=== PATIENT | male | born 1995 | race Caucasian/White ===

== ENCOUNTER 2022-07-29 19:18 | Observation (INO) | payer BC ==
--- NOTE | 2022-07-29 19:25 | ERPHSYRPT ---
- History of Present Illness Time Seen by Provider: 07/29/22 19:25 Source: patient Exam Limitations: no limitations Physician History: This a 27-year-old white male has had no prior abdominal surgery presents with fever that has as high as 102 F and associated nausea without vomiting and abdominal pain that has worsened. When asked where the pain is he points to the right lower quadrant. Patient also has had body aches and a headache. Timing/Duration: yesterday Cough Quality/Degree: no cough Possible Cause: no prior episodes Modifying Factors: Improves With: nothing Associated Symptoms: fever, chills, muscle aches Allergies/Adverse Reactions: No Known Drug Allergies Allergy (Unverified 07/29/22 19:39) Home Medications: No Reportable Medications [No Reported Medications] 07/29/22 [History] Travel Risk - International Travel Have you traveled outside of the country in past 3 weeks: No - Coronavirus Screening Are you exhibiting any of the following symptoms?: Yes Symptoms: Fever, Vomiting/Diarrhea, Headaches/Body Aches/Fatigue Close contact with a COVID-19 positive Pt in past 14-21 Days: No - Review of Systems Constitutional: Fever, Chills Eyes: No Symptoms Ears, Nose, & Throat: No Symptoms Respiratory: No Symptoms Cardiac: No Symptoms Abdominal/Gastrointestinal: Abdominal Pain, Nausea, Diarrhea, Appetite Changes, No Vomiting Genitourinary Symptoms: No Symptoms Musculoskeletal: Arthralgias, Myalgias Skin: No Symptoms Neurological: No Symptoms Psychological: No Symptoms Endocrine: No Symptoms Hematologic/Lymphatic: No Symptoms Immunological/Allergic: No Symptoms All Other Systems: Reviewed and Negative - Past Medical History Pertinent Past Medical History: No - Past Surgical History Past Surgical History: No - Nursing Vital Signs Nursing Vital Signs: Initial Vital Signs Temperature 102.1 F 07/29/22 19:41 Pulse Rate 128 H 07/29/22 19:41 Respiratory Rate 20 07/29/22 19:41 Blood Pressure 119/71 07/29/22 19:41 O2 Sat by Pulse Oximetry 100 07/29/22 19:41 Pain Scale Pain Intensity 8 - Physical Exam General Appearance: no apparent distress, alert, anxiety Eye Exam: PERRL/EOMI, eyes nml inspection Ears, Nose, Throat Exam: normal ENT inspection, moist mucous membranes Neck Exam: normal inspection, non-tender, supple, full range of motion Respiratory Exam: normal breath sounds, lungs clear, airway intact, No chest tenderness, No respiratory distress Cardiovascular Exam: tachycardia Gastrointestinal/Abdomen Exam: soft, normal bowel sounds, tenderness (Point of maximal tenderness is right lower quadrant with both rebound and guarding), guarding, rebound Rectal Exam: not done Back Exam: normal inspection, normal range of motion, No CVA tenderness, No ve rtebral tenderness Extremity Exam: normal inspection, normal range of motion, pelvis stable Neurologic Exam: alert, oriented x 3, cooperative, 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, normal mood/affect, nml cerebellar function, nml station & gait Skin Exam: normal color, warm, dry Lymphatic Exam: No adenopathy SpO2 Interpretation: normal O2 Delivery: Room Air - Course Nursing assessment & vital signs reviewed: Yes Ordered Tests: Active Orders 24 hr Category Date Time Status IV Insertion STAT Care 07/29/22 20:05 Active ABDOMEN AND PELVIS W/0 CONTRAS [CT] Stat Exams 07/29/22 20:06 Taken AMYLASE Stat Lab 07/29/22 20:30 Completed BLOOD CULTURE Stat Lab 07/29/22 20:30 Received CBC W DIFF Stat Lab 07/29/22 20:30 Completed CMP Stat Lab 07/29/22 20:30 Completed LIPASE Stat Lab 07/29/22 20:30 Completed Lactic Acid Stat Lab 07/29/22 20:29 Completed [place] Screen Stat Lab 07/29/22 20:30 Completed UA W/RFX CULTURE Stat Lab 07/29/22 20:30 Received Medication Summary Discontinued Medications Generic Name Dose Route Start Last Admin Trade Name Yanni PRN Reason Stop Dose Admin Acetaminophen 650 mg 07/29/22 20:51 07/29/22 20:54 Acetaminophen 325 Mg Tablet PO 07/29/22 20:52 Not Given STAT ONE Hydromorphone HCl 1 mg 07/29/22 20:05 07/29/22 20:36 Hydromorphone 1 Mg/1ml Inj 1 Mg/Ml Syringe IV 07/29/22 20:06 1 mg STAT ONE Administration Hydromorphone HCl Confirm 07/29/22 20:33 Hydromorphone 1 Mg/1ml Inj 1 Mg/Ml Syringe Administered 07/29/22 20:34 Dose 1 mg .ROUTE .STK-MED ONE Sodium Chloride 1,000 mls @ 999 mls/hr 07/29/22 20:05 07/29/22 20:35 Sodium Chloride 0.9% 1000 Ml IV 07/29/22 21:05 999 mls/hr .Q1H1M STA Administration Sodium Chloride Confirm 07/29/22 20:33 Sodium Chloride 0.9% 1000 Ml Administered 07/29/22 20:34 Dose 1,000 mls @ ud .ROUTE .STK-MED ONE Piperacillin Sod/Tazobactam 100 mls @ 200 mls/hr 07/29/22 20:58 07/29/22 21:02 Sod 3.375 gm/ Sodium Chloride IV 07/29/22 21:27 200 mls/hr STAT ONE Administration Sodium Chloride Confirm 07/29/22 21:02 Sodium Chloride 100ml Mini-Bag Plus Administered 07/29/22 21:03 Dose 100 mls @ ud IV .STK-MED ONE Ondansetron HCl 4 mg 07/29/22 20:05 07/29/22 20:36 Ondansetron Hcl 4 Mg/2 Ml Vial IV 07/29/22 20:06 4 mg STAT ONE Administration Ondansetron HCl Confirm 07/29/22 20:33 Ondansetron Hcl 4 Mg/2 Ml Vial Administered 07/29/22 20:34 Dose 4 mg .ROUTE .STK-MED ONE Piperacillin Sod/Tazobactam Sod Confirm 07/29/22 21:01 Piperacillin/Tazobactam Sodium 3.375 Gm Vial Administered 07/29/22 21:02 Dose 3.375 gm IV .STK-MED ONE Lab/Rad Data: Laboratory Result Diagrams 07/29/22 20:30 07/29/22 20:30 Laboratory Results 07/29/22 07/29/22 07/29/22 Range/Units 20:30 20:30 20:30 WBC (4.0-10.5) x10^3/uL RBC (4.1-5.6) x10^6/uL Hgb (12.5-18.0) g/dL Hct (42-50) % MCV (78-100) fL MCH (26-32) pg MCHC (32-36) g/dL RDW (11.5-14.0) % Plt Count (150-450) x10^3/uL MPV (7.5-11.0) fL Gran % (36.0-66.0) % Immature Gran % (Auto) (0.00-0.4) % Nucleat RBC Rel Count (0.00-0.1) % Eos # (Auto) (0-0.5) x10^3/uL Immature Gran # (Auto) (0.00-0.03) x10^3u/L Absolute Lymphs (auto) (1.0-4.6) x10^3/uL Absolute Monos (auto) (0.0-1.3) x10^3/uL Absolute Nucleated RBC (0.00-0.01) x10^3u/L Lymphocytes % (24.0-44.0) % Monocytes % (0.0-12.0) % Eosinophils % (0.00-5.0) % Basophils % (0.0-0.4) % Absolute Granulocytes (1.4-6.9) x10^3/uL Basophils # (0-0.4) x10^3/uL Sodium 135 L (137-145) mmol/L Potassium 3.3 L (3.5-5.1) mmol/L Chloride 101 (98-107) mmol/L Carbon Dioxide 20 L (22-30) mmol/L Anion Gap 17.3 H (5-15) MEQ/L BUN 16 (9-20) mg/dL Creatinine 1.20 (0.66-1.25) mg/dL Estimated GFR > 60.0 ML/MIN Glucose 103 (74-106) mg/dL Lactic Acid (0.4-2.0) Calcium 9.4 (8.4-10.2) mg/dL Total Bilirubin 0.80 (0.2-1.3) mg/dL AST 41 (17-59) U/L ALT 36 (0-50) U/L Alkaline Phosphatase 88 (38-126) U/L Serum Total Protein 8.0 (6.3-8.2) g/dL Albumin 4.9 (3.5-5.0) g/dL Amylase 63 (30-110) U/L Lipase 56 (23-300) U/L Monoscreen NEGATIVE (Negative) Influenza Type A Ag NEGATIVE (NEGATIVE) Influenza Type B Ag NEGATIVE (NEGATIVE) RSV (PCR) NEGATIVE (Negative) SARS-CoV-2 (PCR) NEGATIVE (NEGATIVE) 07/29/22 07/29/22 Range/Units 20:30 20:29 WBC 11.8 H (4.0-10.5) x10^3/uL RBC 5.26 (4.1-5.6) x10^6/uL Hgb 15.8 (12.5-18.0) g/dL Hct 44.1 (42-50) % MCV 83.8 (78-100) fL MCH 30.0 (26-32) pg MCHC 35.8 (32-36) g/dL RDW 11.6 (11.5-14.0) % Plt Count 187 (150-450) x10^3/uL MPV 9.4 (7.5-11.0) fL Gran % 84.4 H (36.0-66.0) % Immature Gran % (Auto) 0.3 (0.00-0.4) % Nucleat RBC Rel Count 0.0 (0.00-0.1) % Eos # (Auto) 0.03 (0-0.5) x10^3/uL Immature Gran # (Auto) 0.03 (0.00-0.03) x10^3u/L Absolute Lymphs (auto) 0.97 L (1.0-4.6) x10^3/uL Absolute Monos (auto) 0.74 (0.0-1.3) x10^3/uL Absolute Nucleated RBC 0.00 (0.00-0.01) x10^3u/L Lymphocytes % 8.3 L (24.0-44.0) % Monocytes % 6.3 (0.0-12.0) % Eosinophils % 0.3 (0.00-5.0) % Basophils % 0.4 (0.0-0.4) % Absolute Granulocytes 9.93 H (1.4-6.9) x10^3/uL Basophils # 0.05 (0-0.4) x10^3/uL Sodium (137-145) mmol/L Potassium (3.5-5.1) mmol/L Chloride (98-107) mmol/L Carbon Dioxide (22-30) mmol/L Anion Gap (5-15) MEQ/L BUN (9-20) mg/dL Creatinine (0.66-1.25) mg/dL Estimated GFR ML/MIN Glucose (74-106) mg/dL Lactic Acid 2.4 H (0.4-2.0) Calcium (8.4-10.2) mg/dL Total Bilirubin (0.2-1.3) mg/dL AST (17-59) U/L ALT (0-50) U/L Alkaline Phosphatase (38-126) U/L Serum Total Protein (6.3-8.2) g/dL Albumin (3.5-5.0) g/dL Amylase (30-110) U/L Lipase (23-300) U/L Monoscreen (Negative) Influenza Type A Ag (NEGATIVE) Influenza Type B Ag (NEGATIVE) RSV (PCR) (Negative) SARS-CoV-2 (PCR) (NEGATIVE) - Progress Progress: unchanged Air Movement: good Progress Note: 07/29/22 21:25 CAT scan of the abdomen pelvis shows appendix that is enlarged to 10 mm with minimal stranding. Mild versus early appendicitis. There are small right lower quadrant reactive nodes. No free air no free fluid present. 07/29/22 21:26 Echo decision-making: I spoke with Dr. Gama the general surgeon on-call for [facility]. I reviewed the patient history, physical findings and radiographic results. We will place this patient in observation and provide him with n.p.o. status, intravenous fluids, intravenous antibiotics, antiemetics intravenously and intravenous analgesia. Patient will be reassessed in the morning and if indicated will be taken to the operating room. Patient will be placed in observation under Dr. Gama Blood Culture(s) Obtained: Yes Antibiotics given: Yes Discussed with : Yazmin Counseled pt/family regarding: lab results, diagnosis, need for follow-up, rad results - Departure Departure Disposition: Observation Clinical Impression: Acute appendicitis Condition: Stable Critical Care Time: No Referrals: DOCTOR,NO FAMILY [Primary Care Provider] - Follow up/PCP as directed
[2022-07-29] MEDS ORDERED: Sodium Chloride 0.9% 1000 ML 1,000 ML IV STA (20:05)
[2022-07-29] MEDS ORDERED: Zofran 4 MG/2 ML VIAL IV ONE (20:05)
[2022-07-29] MEDS ORDERED: Hydromorphone 1 mg/ml Injection IV ONE (20:05)
[2022-07-29] MEDS ORDERED: Sodium Chloride 0.9% 1000 ML 1,000 ML ONE (20:33)
[2022-07-29] MEDS ORDERED: Zofran 4 MG/2 ML VIAL ONE (20:33)
[2022-07-29] MEDS ORDERED: Hydromorphone 1 mg/ml Injection ONE (20:33)
[2022-07-29 20:35] LABS: Absolute Neutrophil Ct (ANC) 9.93 x10^3/uL (1.4-6.9); Basophil (Absolute #) 0.05 x10^3/uL (0-0.4); Eosinophil % 0.3 % (0.00-5.0); Eosinophil (Absolute #) 0.03 x10^3/uL (0-0.5); Hematocrit 44.1 % (42-50); Hemoglobin 15.8 g/dL (12.5-18.0); Lymphocyte (Absolute #) 0.97 x10^3/uL (1.0-4.6); Lymphocytes % 8.3 % (24.0-44.0); Mean Cell Volume 83.8 fL (78-100); Mean Corpuscular Hgb Concent. 35.8 g/dL (32-36); Mean Platelet Volume 9.4 fL (7.5-11.0); Monocyte (Absolute #) 0.74 x10^3/uL (0.0-1.3); Monocytes % 6.3 % (0.0-12.0); Neutrophil % 84.4 % (36.0-66.0); Platelet Count 187 x10^3/uL (150-450); Red Blood Count 5.26 x10^6/uL (4.1-5.6); Red Cell Distribution Width 11.6 % (11.5-14.0); White Blood Count 11.8 x10^3/uL (4.0-10.5)
[2022-07-29] MEDS ORDERED: TYLENOL 325 MG PO ONE (20:51)
[2022-07-29] MEDS ORDERED: PIPERACILLIN/TAZOBACTAM 3.375 GM in Sodium Chloride 100ML MINI-BAG PLUS 100 ML IV ONE (20:58)
[2022-07-29] MEDS ORDERED: PIPERACILLIN/TAZOBACTAM IV ONE (21:01)
[2022-07-29] MEDS ORDERED: Sodium Chloride 100ML MINI-BAG PLUS 100 ML IV ONE (21:02)
[2022-07-29 21:12] LABS: INFLUENZA A NEGATIVE (NEGATIVE); INFLUENZA B NEGATIVE (NEGATIVE); RESPIRATORY SYNCTIAL VIRUS NEGATIVE (Negative); SARS-CoV-2 Xpert Express NEGATIVE (NEGATIVE)
[2022-07-29 21:23] LABS: ALBUMIN 4.9 g/dL (3.5-5.0); ALKALINE PHOSPHATASE 88 U/L (38-126); AMYLASE 63 U/L (30-110); BLOOD UREA NITROGEN 16 mg/dL (9-20); CHLORIDE 101 mmol/L (98-107); Calcium 9.4 mg/dL (8.4-10.2); Carbon Dioxide 20 mmol/L (22-30); EST GLOMERULAR FILTRATION RATE > 60.0 ML/MIN; Glucose 103 mg/dL (74-106); LIPASE 56 U/L (23-300); Potassium 3.3 mmol/L (3.5-5.1); SGOT/AST 41 U/L (17-59); SGPT/ALT 36 U/L (0-50); SODIUM 135 mmol/L (137-145)
[2022-07-29 21:26] LABS: ANION GAP 17.3 MEQ/L (5-15)
[2022-07-29] MEDS ORDERED: FEVERALL 650 MG PR PRN (22:01)
[2022-07-29] MEDS ORDERED: Zofran 4 MG/2 ML VIAL IV PRN (22:01)
[2022-07-29] MEDS: Sodium Chloride 0.9% 1000 ML 1,000 ML IV SCH (22:28)
[2022-07-29] MEDS ORDERED: TYLENOL 325 MG PO PRN (22:51)
[2022-07-30] MEDS ORDERED: PIPERACILLIN/TAZOBACTAM IV ONE (02:59)
[2022-07-30] MEDS ORDERED: Sodium Chloride 100ML MINI-BAG PLUS 100 ML IV ONE (02:59)
[2022-07-30] MEDS: PIPERACILLIN/TAZOBACTAM 3.375 GM in Sodium Chloride 100ML MINI-BAG PLUS 100 ML IV SCH ×2 (05:15→05:32)
[2022-07-30] MEDS: Hydromorphone 1 mg/ml Injection IV PRN ×3 (05:21→18:56)
[2022-07-30] MEDS: Sodium Chloride 0.9% 1000 ML 1,000 ML IV SCH (05:21)
[2022-07-30 05:48] LABS: Absolute Neutrophil Ct (ANC) 6.67 x10^3/uL (1.4-6.9); Basophil (Absolute #) 0.03 x10^3/uL (0-0.4); Eosinophil % 0.3 % (0.00-5.0); Eosinophil (Absolute #) 0.03 x10^3/uL (0-0.5); Hematocrit 39.1 % (42-50); Hemoglobin 13.5 g/dL (12.5-18.0); Lymphocyte (Absolute #) 1.48 x10^3/uL (1.0-4.6); Lymphocytes % 16.6 % (24.0-44.0); Mean Cell Volume 86.7 fL (78-100); Mean Corpuscular Hemoglobin 29.9 pg (26-32); Mean Corpuscular Hgb Concent. 34.5 g/dL (32-36); Mean Platelet Volume 8.9 fL (7.5-11.0); Monocytes % 7.8 % (0.0-12.0); Neutrophil % 74.7 % (36.0-66.0); Platelet Count 147 x10^3/uL (150-450); Red Blood Count 4.51 x10^6/uL (4.1-5.6); Red Cell Distribution Width 11.8 % (11.5-14.0); White Blood Count 8.9 x10^3/uL (4.0-10.5)
[2022-07-30 05:55] LABS: ALBUMIN 3.7 g/dL (3.5-5.0); ALKALINE PHOSPHATASE 60 U/L (38-126); ANION GAP 8.9 MEQ/L (5-15); BLOOD UREA NITROGEN 14 mg/dL (9-20); CHLORIDE 104 mmol/L (98-107); Carbon Dioxide 27 mmol/L (22-30); Creatinine 1 1.21 mg/dL (0.66-1.25); EST GLOMERULAR FILTRATION RATE > 60.0 ML/MIN; Glucose 99 mg/dL (74-106); SGOT/AST 30 U/L (17-59); SGPT/ALT 31 U/L (0-50); SODIUM 135 mmol/L (137-145); Total Protein 6.3 g/dL (6.3-8.2)
--- NOTE | 2022-07-30 08:45 | XRAY ---
Indication: Abdomen pain, nausea, vomiting, diarrhea. Multiple contiguous axial images obtained through the abdomen and pelvis without contrast. Comparison: None Lung bases demonstrates 2 subcentimeter left lower lobe noncalcified nodules favored to be granulomatous in this demographic. No infiltrate or effusion. Heart not enlarged. Noncontrasted stomach and bowel loops appear nonobstructed. Appendix is prominent up to 10 mm with mild periappendiceal stranding favoring mild/early appendicitis. Small right lower quadrant mesenteric nodes largest 1 x 1.3 cm presumed reactive. No free fluid/air. Incidental 1.3 cm nonobstructing left renal calculus and 14.5 cm splenomegaly. Remaining liver, gallbladder, pancreas, spleen, adrenal glands, kidneys, ureters, bladder, and aorta are unremarkable for noncontrast exam. Osseous structures intact. Impression: 1. Prominent appendix with periappendiceal stranding favoring mild/early appendicitis. Small right lower quadrant mesenteric nodes presumed reactive. 2. Incidental nonobstructing left renal calculus, splenomegaly, and old granulomatous disease.
--- NOTE | 2022-07-30 10:04 | HP ---
HISTORY OF PRESENT ILLNESS: The patient is a 27-year-old male who presents with complaints of right lower quadrant pain starting yesterday. The patient denies pain like this in the past. The patient said he felt like he had a fever and some chills. The patient reports the pain is worse upon moving. The patient has a history of some kidney stones in the past. He denies listing any similarity to that pain at all. PAST MEDICAL HISTORY: Kidney stones. PAST SURGICAL HISTORY: Lithotripsy. Urinary stents. ALLERGIES: NKDA. MEDICATIONS: None. FAMILY HISTORY: None. SOCIAL HISTORY: Occasional alcohol. REVIEW OF SYSTEMS: CONSTITUTIONAL: Reports fever and chills. CHEST: Denies shortness of breath. CVS: Denies chest pain. ABDOMEN: Reports right lower quadrant pain. PHYSICAL EXAMINATION: GENERAL: No acute distress. CHEST: Nonlabored. No shortness of breath. CVS: Regular rate and rhythm. ABDOMEN: Soft, tender in the right lower quadrant. IMPRESSION: A 27-year-old male with acute right lower quadrant pain. He came in to the emergency room. He had a CT scan. It is showing that he has a prominent appendix with some periappendiceal stranding favoring mild early appendicitis. He has evidence of incidental nonobstructing left renal calculus and splenomegaly. His white count is 11.8 today. He does not have a fever today. He is having some right lower quadrant pain that has not been having any relief with pain medicine. PLAN: The plan will be to take the patient to surgery today for laparoscopic appendectomy. I discussed the procedure with the patient and the risks. The patient agrees to proceed with the procedure today with Dr. Curtis Dominguez. As dictated by Allyn Milner NP.
[2022-07-30] MEDS ORDERED: Transderm Scop 1.5MG Patch ONE (11:49)
[2022-07-30] MEDS ORDERED: Transderm Scop 1.5MG Patch TOP ONE ×2 (11:53)
[2022-07-30] MEDS ORDERED: Versed 2 MG/2 ML Injection IV PRN (11:53)
[2022-07-30] MEDS ORDERED: DEXMEDETOMIDINE 80 MCG/20ML-NS IV ONE (12:00)
[2022-07-30] MEDS ORDERED: PIPERACILLIN/TAZOBACTAM 3.375 GM in Sodium Chloride 100ML MINI-BAG PLUS 100 ML IV SCH (12:00)
[2022-07-30] MEDS ORDERED: DIPRIVAN 200 MG/20 ML IV ONE (12:02)
[2022-07-30] MEDS ORDERED: Zemuron 100 MG/10 ML ONE (12:02)
[2022-07-30] MEDS ORDERED: BRIDION 200MG/2ML IV ONE (12:02)
[2022-07-30] MEDS ORDERED: TORAdol 30 mg Injection ONE (12:02)
[2022-07-30] MEDS ORDERED: Versed 2 MG/2 ML Injection ONE (12:02)
[2022-07-30] MEDS ORDERED: Decadron 4 MG INJ ONE (12:02)
[2022-07-30] MEDS ORDERED: Quelicin Fliptop 200 MG/10 ML ONE (12:02)
[2022-07-30] MEDS ORDERED: Zofran 4 MG/2 ML VIAL ONE (12:02)
[2022-07-30] MEDS ORDERED: Xylocaine-Mpf 2% 5 Ml Vial ONE (12:02)
[2022-07-30] MEDS ORDERED: SUBLIMAZE 100 MCG/2 ML ONE ×2 (12:05→13:12)
[2022-07-30] MEDS ORDERED: Pre-Attached Lta Kit TP ONE (12:06)
[2022-07-30] MEDS ORDERED: Sensorcaine 0.25% 10 ML ONE (12:09)
[2022-07-30] MEDS ORDERED: Lactated Ringers 1,000 ML IV ONE (12:09)
[2022-07-30] MEDS ORDERED: NORCO 5/325 MG PO PRN (13:00)
[2022-07-30] MEDS ORDERED: MORPHINE SULFATE 2 MG INJ IV PRN (13:01)
--- NOTE | 2022-07-30 13:37 | OP ---
SURGERY DATE/TIME: 07/30/2022 1214 PREOPERATIVE DIAGNOSIS: Acute appendicitis. POSTOPERATIVE DIAGNOSIS: Acute nonperforated appendicitis. PROCEDURE: Laparoscopic appendectomy. SURGEON: Curtis Dominguez M.D. ANESTHESIA: General endotracheal tube. COMPLICATIONS: None. CONDITION: Stable. INDICATION: A patient with acute appendicitis. DESCRIPTION OF PROCEDURE: Taken to surgery. General anesthetic. Routine prep and drape. Veress needle inserted. Opening pressure of 1, insufflating pressure 14. Two - 5's and a 12. Good visualization. There was a fair amount of adipose especially in the falciform and in the bladder flap. The bladder was full. The appendix was fairly high about retirement up. It was very anterior. The base was easily seen. First cartridge was placed across for one minute, it was fired. It was left for one minute. Residual tissue was then taken with a second weston cartridge. The appendix had been taken right on the tinea. There was no residual stump. There was no residual appendiceal stump. The field was dry. It was placed in a condom bag and removed. Hole closure device was used with 0 Vicryl with satisfactory approximation and hemostasis. Skin closed with 4-0 Vicryl and Steri-Strips. The patient tolerated the procedure satisfactorily.
[2022-07-30 17:41] VITALS: BP 130/79; PULSE 88; O2SAT 96
== END 2022-07-30 19:10 | disposition home or self-care (01) ==
LOC: ED 19:18 → MED SURG 21:59
PROVIDERS: ADMIT Surgery; ATTEND Surgery
DX: K35.80 Unspecified acute appendicitis (principal)
CPT/HCPCS: 0241U; 36000; 36415; 44970; 74176; 80053; 82150; 83605; 83690; 85025; 86308; 87040; 96360; 96365; 96374; 96375; 99285; 81015; 99140; G0378; J0330; J1100; J1170; J1885; J2250; J2270; J2405; J2704; J3010; A9270-GY